=== PATIENT | female | born 1995 | race American Indian/Alaskan Native ===

== ENCOUNTER 2017-05-08 13:04 | Emergency (ER) | payer OTHER ==
[2017-05-08 14:03] VITALS: BP 123/73
[2017-05-08] MEDS ORDERED: ZOFRAN ODT PO ONE (15:10)
--- NOTE | 2017-05-08 15:15 | Emergency Department Report ---
ED N/V/D HPI - General Chief complaint: Nausea/Vomiting/Diarrhea Stated complaint: VOMITING Time Seen by Provider: 05/08/17 15:07 Source: patient Mode of arrival: Ambulatory Limitations: No Limitations - History of Present Illness Initial comments: 21-year-old healthy female presents with positive home test and possible food poisoning. Last menstrual period April 06 2017 complaint: nausea, vomiting -: days(s) (1) Description of Vomiting: food contents Description of Diarrhea: water Associated Abdominal Pain: Yes Location: diffuse Radiation: none Severity: moderate Pain Scale: 5 Consistency: colicky Improves with: none Context: possible food poisoning (at at restaurant), other (+ home UPT) - Related Data Previous Rx's Medication Instructions Recorded Last Taken Type Promethazine [Phenergan TAB] 25 mg PO Q6HR PRN #10 tab 05/08/17 Unknown Rx Allergies Allergy/AdvReac Type Severity Reaction Status Date / Time No Known Allergies Allergy Unverified 05/08/17 13:59 ED Review of Systems ROS: Stated complaint: VOMITING Other details as noted in HPI Comment: All other systems reviewed and negative Constitutional: denies: fever, malaise Respiratory: denies: cough, orthopnea Cardiovascular: denies: chest pain ED Past Medical Hx - Past Medical History Additional medical history: meningitis - Surgical History Past Surgical History?: No - Social History Smoking Status: Never Smoker Substance Use Type: None - Medications Home Medications: Home Medications Medication Instructions Recorded Confirmed Last Taken Type Promethazine [Phenergan TAB] 25 mg PO Q6HR PRN #10 tab 05/08/17 Unknown Rx ED Physical Exam - General Limitations: No Limitations General appearance: alert, in no apparent distress - Head Head exam: Present: atraumatic, normocephalic - Eye Eye exam: Present: normal appearance - ENT ENT exam: Present: mucous membranes moist - Neck Neck exam: Present: normal inspection - Respiratory Respiratory exam: Present: normal lung sounds bilaterally. Absent: respiratory distress, wheezes, rales, rhonchi - Cardiovascular Cardiovascular Exam: Present: regular rate, normal rhythm. Absent: systolic murmur, diastolic murmur, rubs, gallop - GI/Abdominal GI/Abdominal exam: Present: soft, normal bowel sounds. Absent: distended, tenderness, guarding, rebound - Extremities Exam Extremities exam: Present: normal inspection - Back Exam Back exam: Present: normal inspection - Neurological Exam Neurological exam: Present: alert, oriented X3 - Psychiatric Psychiatric exam: Present: normal affect, normal mood - Skin Skin exam: Present: warm, dry, intact, normal color. Absent: rash ED Course Vital Signs 05/08/17 13:59 Temperature 98.2 F Pulse Rate 76 Respiratory 16 Rate Blood Pressure 123/73 O2 Sat by Pulse 100 Oximetry ED Medical Decision Making - Medical Decision Making Ms. Kline is a healthy 21-year-old female who presents with abdominal pain nausea vomiting diarrhea indicative of food poisoning. No evidence of . Negative test in ED. No indication of appendicitis. No indication of ectopic . No indication of PID. Patient prescribed promethazine. Recommended clear liquid diet. Critical care attestation.: If time is entered above; I have spent that time in minutes in the direct care of this critically ill patient, excluding procedure time. ED Disposition Clinical Impression: Food poisoning Disposition: DC-01 TO HOME OR SELFCARE Is pt being admited?: No Does the pt Need Aspirin: No Condition: Stable Instructions: Food Poisoning (ED) Prescriptions: Promethazine [Phenergan TAB] 25 mg PO Q6HR PRN #10 tab PRN Reason: Nausea Referrals: [facility] [Outside] - 3-5 Days Forms: Work/School Release Form(ED) Time of Disposition: 15:53
[2017-05-08 15:41] LABS: HCG Qualitative,Urine Negative (Negative)
== END 2017-05-08 16:00 | disposition home or self-care (01) ==
LOC: ED 13:04
DX: T62.91XA Toxic effect of unspecified noxious substance eaten as food, accidental (unintentional), initial encounter (principal); R11.2 Nausea with vomiting, unspecified; R19.7 Diarrhea, unspecified; Y92.511 Restaurant or cafe as the place of occurrence of the external cause
CPT/HCPCS: 81025; 99283; Q0162

== ENCOUNTER 2017-10-29 21:26 | Emergency (ER) | payer BC, OTHER ==
[2017-10-29] MEDS ORDERED: ASPIRIN PO ONE (21:50)
[2017-10-29 23:04] LABS: Basophils # (Auto) 0.1 K/mm3 (0.0-0.1); Basophils % (Auto) 0.9 % (0.0-1.8); Eosinophils # (Auto) 0.2 K/mm3 (0.0-0.4); Eosinophils % (Auto) 1.8 % (0.0-4.3); Hematocrit 35.7 % (30.3-42.9); Hemoglobin 11.5 gm/dl (10.1-14.3); Lymphocytes # (Auto) 2.6 K/mm3 (1.2-5.4); Lymphocytes % (Auto) 29.5 % (13.4-35.0); Mean Corpuscular HGB Conc 32 % (30-34); Mean Corpuscular Volume 80 fl (79-97); Monocytes # (Auto) 0.5 K/mm3 (0.0-0.8); Monocytes % (Auto) 5.4 % (0.0-7.3); Platelet Count 345 K/mm3 (140-440); Red Blood Count 4.49 M/mm3 (3.65-5.03)
[2017-10-29 23:19] LABS: Mean Corpuscular Hemoglobin 26 pg (28-32)
[2017-10-29 23:40] LABS: BUN/Creatinine Ratio 12; Blood Urea Nitrogen 11 mg/dL (7-17); Calcium 9.2 mg/dL (8.4-10.2); Hemolysis Index 2
[2017-10-30] MEDS ORDERED: TYLENOL PO ONE (00:54)
[2017-10-30] MEDS ORDERED: TYLENOL ONE (00:58)
[2017-10-30 03:00] VITALS: BP 109/51
[2017-10-30 03:00] LABS: HCG Qualitative,Urine Negative (Negative)
--- NOTE | 2017-10-30 03:38 | XRay Report ---
FINAL REPORT EXAM: XR CHEST ROUTINE 2V HISTORY: cough,chest pain TECHNIQUE: PA and lateral views of the chest were obtained. FINDINGS: Heart size and vascularity appear normal. The lungs are clear. Pleural fluid is not seen. The skeletal structures are well-maintained. IMPRESSION: No acute cardiopulmonary process.
--- NOTE | 2017-10-30 04:10 | Emergency Department Report ---
ED Chest Pain HPI - General Chief Complaint: Chest Pain Stated Complaint: CHEST PAIN,WEAKNESS,VENTURA,COUGH Time Seen by Provider: 10/30/17 03:35 Source: patient Mode of arrival: Ambulatory Limitations: No Limitations - History of Present Illness Initial Comments: 22-year-old female with cough 2 months. Reports sharp chest pain onset yesterday, intermittent, midchest. Denies SOB. Denies fever. Pt concerned about possiby having pneumonia. MD Complaint: chest pain -: days(s) (1) Onset: during rest Pain Location: left chest, right chest Pain Radiation: none Severity: mild Severity scale (0 -10): 8 Quality: other ("soreness") Consistency: intermittent Improves With: nothing Worsens With: palpation, other (cough) - Related Data Previous Rx's Medication Instructions Recorded Last Taken Type Promethazine [Phenergan TAB] 25 mg PO Q6HR PRN #10 tab 05/08/17 Unknown Rx Benzonatate [Tessalon Perles] 100 mg PO Q8HR PRN #20 capsule 10/30/17 Unknown Rx predniSONE [Prednisone] 50 mg PO DAILY #5 tablet 10/30/17 Unknown Rx Allergies Allergy/AdvReac Type Severity Reaction Status Date / Time ceftriaxone [From Rocephin] Allergy Unknown Verified 10/29/17 21:50 Heart Score - HEART Score History: Slightly suspicious EKG: Normal Age: < 45 Risk factors: No known risk factors Troponin: < normal limit HEART Score: 0 - Critical Actions Critical Actions: 0-3 pts:0.9-1.7%risk of adverse cardiac event.Candidate for discharge ED Review of Systems ROS: Stated complaint: CHEST PAIN,WEAKNESS,VENTURA,COUGH Other details as noted in HPI Comment: All other systems reviewed and negative Constitutional: denies: fever Respiratory: cough. denies: shortness of breath Cardiovascular: chest pain Gastrointestinal: denies: nausea, vomiting Musculoskeletal: other (denies leg pain or swelling) ED Past Medical Hx - Past Medical History Previous Medical History?: No Additional medical history: meningitis - Surgical History Past Surgical History?: No - Social History Smoking Status: Never Smoker Substance Use Type: Alcohol - Medications Home Medications: Home Medications Medication Instructions Recorded Confirmed Last Taken Type Promethazine [Phenergan TAB] 25 mg PO Q6HR PRN #10 tab 05/08/17 Unknown Rx Benzonatate [Tessalon Perles] 100 mg PO Q8HR PRN #20 capsule 10/30/17 Unknown Rx predniSONE [Prednisone] 50 mg PO DAILY #5 tablet 10/30/17 Unknown Rx ED Physical Exam - General Limitations: No Limitations General appearance: alert, in no apparent distress - Head Head exam: Present: atraumatic, normocephalic - Eye Eye exam: Present: normal appearance - ENT ENT exam: Present: mucous membranes moist - Neck Neck exam: Present: normal inspection - Respiratory Respiratory exam: Present: normal lung sounds bilaterally. Absent: respiratory distress - Cardiovascular Cardiovascular Exam: Present: regular rate, normal rhythm - GI/Abdominal GI/Abdominal exam: Present: soft. Absent: tenderness - Extremities Exam Extremities exam: Absent: pedal edema, calf tenderness - Neurological Exam Neurological exam: Present: alert, oriented X3 - Psychiatric Psychiatric exam: Present: normal affect, normal mood - Skin Skin exam: Present: warm, dry, intact, normal color ED Course Vital Signs 10/29/17 10/29/17 10/30/17 21:34 21:46 01:59 Temperature 98.3 F 98.3 F Pulse Rate 65 60 Respiratory 18 18 16 Rate Blood Pressure 117/72 117/72 Blood Pressure [Left] O2 Sat by Pulse 97 98 Oximetry 10/30/17 02:58 Temperature 97.7 F Pulse Rate 52 L Respiratory 16 Rate Blood Pressure Blood Pressure 109/51 [Left] O2 Sat by Pulse 98 Oximetry ED Medical Decision Making - Lab Data Result diagrams: 10/29/17 22:09 10/29/17 22:09 - EKG Data -: EKG Interpreted by [place] EKG shows normal: sinus rhythm, axis, intervals, QRS complexes, ST-T waves Rate: bradycardia - EKG Data Interpretation: normal EKG - Radiology Data Radiology results: report reviewed, image reviewed - Medical Decision Making 22-year-old female with cough 2 weeks and chest pain 1 day. Chest x-ray and labs normal. EKG unremarkable. Likely chest wall pain. Advised outpatient follow-up. - Differential Diagnosis pneumonia, bronchitis, chest wall pain Critical care attestation.: If time is entered above; I have spent that time in minutes in the direct care of this critically ill patient, excluding procedure time. ED Disposition Clinical Impression: Chest pain, Bronchitis Disposition: DC- TO HOME OR SELFCARE Is pt being admited?: No Condition: Stable Instructions: Chest Pain (ED), Acute Bronchitis (ED) Prescriptions: Benzonatate [Tessalon Perles] 100 mg PO Q8HR PRN #20 capsule PRN Reason: Cough predniSONE [Prednisone] 50 mg PO DAILY #5 tablet Referrals: [facility], [Primary Care Provider] - 3-5 Days [facility] [Provider Group] - 3-5 Days Forms: Work/School Release Form(ED) Time of Disposition: 04:10
== END 2017-10-30 04:22 | disposition home or self-care (01) ==
LOC: ED 21:26
DX: J40 Bronchitis, not specified as acute or chronic (principal); Z88.1 Allergy status to other antibiotic agents
CPT/HCPCS: 36415; 71046; 80048; 81025; 84484; 85025; 93005; 93010